=== PATIENT | female | born 1940 | race Caucasian/White ===

== ENCOUNTER → 2017-01-21 | Outpatient (CLI) | payer MEDICARE | END | disposition home or self-care (01) | LOC: PCVCCLINIC 11:16 | PROVIDERS: ATTEND Internal Medicine | DX: I10 Essential (primary) hypertension (principal); R00.2 Palpitations; E78.2 Mixed hyperlipidemia | CPT/HCPCS: 80061; 93005; G0463 ==

== ENCOUNTER → 2017-08-07 | Outpatient (CLI) | payer MEDICARE | END | disposition home or self-care (01) | LOC: PCVCCLINIC 15:45 | PROVIDERS: ATTEND Nuclear Medicine Nuclear Cardiology | DX: I73.9 Peripheral vascular disease, unspecified (principal) | CPT/HCPCS: 36415 ==

== ENCOUNTER → 2017-08-12 | Outpatient (CLI) | payer MEDICARE ==
[~2017-08-12] MED LIST: ASPIRIN 325 MG TABLET ONE; CLOPIDOGREL BISULFATE 75 MG TABLET ONE; DIAZEPAM 10 MG TABLET. ONE; EPTIFIBATIDE BOLUS 2,000 MCG/ML 10ML VIAL. IV ONE; HEPARIN SODIUM 5,000 UNIT/ML VIAL for PCVC. ONE; IODIXANOL 270 MG/ML 100 ML VIAL. ONE; IV NORMAL SALINE 500ML BAG 500 ML ONE; LIDOCAINE 1% Multi-Dose 20 ML VIAL. ONE; LIDOCAINE 1%/EPI 1:100,000 20 ML VIAL. ONE; MIDAZOLAM HCL/PF 2 MG/2 ML VIAL. ONE; fentaNYL PF VIAL 100 MCG/2 ML VIAL ONE; hydrALAZINE 20 MG/ML VIAL. ONE
--- NOTE | 2017-08-12 12:23 | PCVCINTER ---
EXAM: 1. AORTOGRAM AND BILATERAL LOWER EXTREMITY RUNOFF ANGIOGRAM 2. BILATERAL RENAL ANGIOGRAPHY 3. LEFT SUPERFICIAL FEMORAL ARTERY ATHERECTOMY AND STENT PLACEMENT. 4. SECONDARY THROMBECTOMY LEFT SUPERFICIAL FEMORAL ARTERY. 5. DRUG COATED BALLOON ANGIOPLASTY LEFT SUPERFICIAL FEMORAL ARTERY. INDICATION: Peripheral arterial disease. Coronary artery disease. Nonhealing ulcer right lower extremity. Hypertension. Renal atherosclerosis. PROCEDURE: Procedure and risks of angiography intervention is appropriate including limb loss stroke and were discussed with the patient's family and consent obtained. The patient's right groin was prepped abnormal sterile fashion. IV conscious sedation was used to procedure with appropriate monitoring 10:00 AM through 11:30 AM. Ultrasound was used to interrogate the right groin and showed the right common femoral artery to be patent. A permanent spot film was obtained. Under ultrasound guidance access into the right common femoral artery was obtained and a 5 Macanese sheath was placed. Through this a 5 Macanese flush catheter was placed into the abdominal aorta at the level of the renal arteries and AP aortogram was performed. Catheter was positioned at the aortic bifurcation and both oblique views of the pelvis were obtained. Catheter was positioned into the right external iliac artery and right leg runoff angiography was performed. Catheter was exchanged for a visceral catheter was placed into the right renal arteries and right renal angiograms obtained. Catheter was placed into the the left renal arteries and left renal angiograms were obtained. Catheter was advanced to the level of the left external iliac artery and left leg runoff angiography was obtained. Patient was given 4500 units of heparin. A 6 Macanese crossover sheath was placed via the right groin to the level of the left common femoral artery. Atherectomy of the left left superficial femoral artery was performed with 2.0 mm [employer] laser atherectomy catheter in the standard fashion. Following atherectomy small areas of thrombus were observed and because of this secondary thrombectomy throughout the left left superficial femoral artery was carried out with mechanical suction thrombectomy catheter in the standard fashion. Minimal debris was removed. Stent placement across the areas of high-grade stenosis in the left superficial femoral artery was carried out with a 6 x 150 and 6 x 150 with subsequent dilatation to 5.0 mm. Following this drug coated balloon angioplasty of the left superficial femoral artery was carried out with a 5 x 150, 5 x 150, and 5 x 60 [employer] Admiral [employer] catheter. Follow-up angiogram was performed. Catheters and wires removed. Sheath was removed and hemostasis obtained using the Exoseal device. No immediate complications. FINDINGS: Aortogram: There is one right and 2 left renal arteries. The infrarenal abdominal aorta shows mild calcific plaque without significant stenosis. Pelvis: The right and left common and internal iliac arteries are patent. Mild plaque in the right and left external iliac arteries without significant stenosis. The right and left common femoral and profunda femoral arteries show good patency. Incidental note is made of 70% stenosis at the origin of the inferior mesenteric artery. Right renal artery: Mild plaque proximal vessel does not cause significant stenosis. No branch vessel stenosis. Left renal artery: There are 2 left renal arteries. The upper renal artery is smaller showing mild plaque in its proximal portion without significant stenosis. The lower renal artery is dominant with mild plaque at its origin without significant stenosis. Right leg: Occlusion throughout the length of the superficial femoral artery with refilling of the superficial femoral artery distally. The popliteal artery shows good patency with three-vessel runoff into the foot. Left leg: Occlusion throughout the length of the superficial femoral artery. The popliteal artery is patent. Three-vessel runoff into the foot. Left superficial femoral artery: Successful recanalization of the superficial femoral artery with good flow throughout the conclusion of the procedure with minimal residual stenosis at its origin. IMPRESSION: Occlusion throughout the left superficial femoral artery was treated as above with satisfactory patency restored. Occlusion throughout the length of the right superficial femoral artery. follow up LOC:[place] [id number]
== END | disposition home or self-care (01) ==
LOC: PCVCINTER 08:39 → MERGE 08:39
PROVIDERS: ATTEND Nuclear Medicine Nuclear Cardiology
DX: I70.213 Atherosclerosis of native arteries of extremities with intermittent claudication, bilateral legs (principal); I25.10 Atherosclerotic heart disease of native coronary artery without angina pectoris; I10 Essential (primary) hypertension; I70.1 Atherosclerosis of renal artery
CPT/HCPCS: 36252; 37186; 37227; 75716; 76937; 99152; 99153; C1725; C1751; C1757; C1760; C1769; C1876; C1885; C1887; C1894; C2623; J0360; J0690; J1327; J1644; J2250; J3010; J3490; J7040; Q9966